=== PATIENT | male | born 1955 | race Caucasian/White ===

== ENCOUNTER 2017-07-06 11:30 | Day surgery (SDC) | payer BC ==
[~2017-07-06] VITALS: Ht 185.4 cm; Wt 112.5 kg
[2017-07-06 12:07] VITALS: BP 125/80; PULSE 83; TEMP 98.4
[2017-07-06 13:30] VITALS: BP 110/74; PULSE 75; TEMP 98.6
[2017-07-06 13:45] VITALS: BP 115/79; PULSE 73
[2017-07-06 14:00] VITALS: BP 130/87; PULSE 74
[2017-07-06 18:12] VITALS: BP 100/73; PULSE 71
== END 2017-07-06 14:19 | disposition home or self-care (01) ==
LOC: SDCO 11:30
DX: Z12.11 Encounter for screening for malignant neoplasm of colon (principal); Z86.010 Personal history of colon polyps; D12.8 Benign neoplasm of rectum
CPT/HCPCS: J2250; J3010; J7030